=== PATIENT | male | born 1995 | race Caucasian/White ===

== ENCOUNTER 2020-03-06 09:34 | Emergency (ER) | payer OTHER, SELFPAY ==
[2020-03-06 11:21] VITALS: BP 135/72
== END 2020-03-06 11:21 | disposition home or self-care (01) ==
LOC: ED 09:34
DX: R05 Cough (principal); R09.81 Nasal congestion; Z20.828 Contact with and (suspected) exposure to other viral communicable diseases
CPT/HCPCS: U0003